=== PATIENT | male | born 1965 | race Asian ===

== ENCOUNTER 2023-11-03 07:51 | Day surgery (SDC) | payer BC, SELFPAY ==
[2023-10-29 08:00] VITALS: BMI 24.7
[2023-10-29 09:06] LABS: Hemoglobin 15.1 g/dL (13.0-18.0); Mean Corp Hgb Conc. 32.8 g/dL (33.0-37.0); Mean Corpuscular Hgb 29.2 pg (27.0-31.0); Mean Corpuscular Volume 88.8 fL (80.0-94.0); Mean Platelet Volume 9.9 fL (7.4-10.4); Platelet Count 160 10^3/uL (130-400); Red Blood Cell Count 5.18 10^6/uL (4.70-6.10); White Blood Cell Count 5.3 10^3/uL (4.8-10.8)
[2023-10-29 09:29] LABS: Blood Urea Nitrogen 25 mg/dl (9-20); Calcium 8.7 mg/dl (8.4-10.2); Carbon Dioxide 25 mmol/L (22-30); Chloride 105 mmol/L (98-107); Estimated Creatinine Clearance 90 ml/min; Glucose 105 mg/dl (70-99); Potassium 3.8 mmol/L (3.5-5.1); Sodium 141 mmol/L (135-145); eGFR > 60.00
[2023-11-03] VITALS (10 sets, daily range): BP systolic 111–147; BP diastolic 64–81; BMI 24.7
[2023-11-03] MEDS: NORMOSOL-R 1000 IV (08:01)
== END 2023-11-03 11:55 | disposition home or self-care (01) ==
LOC: SDS 07:51
PROVIDERS: ATTENDING PHYSICIAN Otolaryngology; FAMILY PHYSICIAN Family Medicine; OTHER PHYSICIAN Internal Medicine Cardiovascular Disease
DX: J33.9 Nasal polyp, unspecified (principal); J34.2 Deviated nasal septum; J34.3 Hypertrophy of nasal turbinates
CPT/HCPCS: 31267; 31254; 30520; 30802; 88304; 88311; 36415; 80048; 85027; 93005